=== PATIENT | female | born 1985 | race Caucasian/White ===

== ENCOUNTER 2020-08-28 17:09 | Emergency (ER) | payer OTHER ==
[2020-08-28 17:46] LABS: BASOPHILS # (AUTO) 0.1 10^3/uL (0.0-0.1); BASOPHILS % (AUTO) 0.4 %; EOSINOPHILS # (AUTO) 0.1 10^3/uL (0.0-0.7); EOSINOPHILS % (AUTO) 0.3 %; HCT - HEMATOCRIT 42.3 % (37.0-47.0); HGB - HEMOGLOBIN 14.3 g/dL (12.0-16.0); LYMPHOCYTES # (AUTO) 1.9 10^3/uL (1.5-3.5); LYMPHOCYTES % (AUTO) 9.5 %; MEAN CORPUSCULAR HEMOGLOBIN 31.2 pg (27.0-31.0); MEAN CORPUSCULAR HGB CONC 33.8 g/dL (32.0-36.0); MEAN CORPUSCULAR VOLUME 92.2 fL (81.0-99.0); MEAN PLATELET VOLUME 9.8 fL (7.9-10.8); MONOCYTES # (AUTO) 0.7 10^3/uL (0.0-1.0); MONOCYTES % (AUTO) 3.3 %; NEUTROPHILS # (AUTO) 17.1 10^3/uL (1.5-6.6); NEUTROPHILS % (AUTO) 86.1 %; PLT - PLATELET COUNT 370 10^3/uL (130-450); RED BLOOD COUNT 4.59 10^6/uL (4.20-5.40); RED CELL DISTRIBUTION WIDTH 12.1 % (12.0-15.0); WHITE BLOOD COUNT 19.9 x10^3/uL (4.8-10.8)
[2020-08-28 17:53] LABS: BILIRUBIN,URINE NEGATIVE (NEGATIVE); GLUCOSE, URINE (UA) NEGATIVE (NEGATIVE); KETONES,URINE (UA) NEGATIVE (NEGATIVE); LEUKOCYTE ESTERASE, URINE NEGATIVE (NEGATIVE); NITRITE,URINE NEGATIVE (NEGATIVE); OCCULT BLOOD,URINE NEGATIVE (NEGATIVE); PROTEIN,URINE NEGATIVE (NEGATIVE); UROBILINOGEN,URINE 0.2 (NORMAL) E.U./dL (NORMAL)
[2020-08-28 18:01] LABS: ALBUMIN 4.2 g/dL (3.2-5.5); ALBUMIN/GLOBULIN RATIO 1.2 (1.0-2.2); BILIRUBIN,TOTAL 0.7 mg/dL (0.2-1.0); CALCIUM 8.8 mg/dL (8.5-10.3); CLARITY,URINE CLEAR (CLEAR); CREATININE 0.7 mg/dL (0.4-1.0); HCG UR QUAL NEGATIVE; POTASSIUM 3.6 mmol/L (3.5-5.0); TOTAL PROTEIN 7.8 g/dL (6.7-8.2)
[2020-08-28] MEDS ORDERED: KETOROLAC 30 MG/ML VIAL IVP STA (18:02)
[2020-08-28] MEDS ORDERED: IOVERSOL 320 100 ML VIAL IVP ONE ×2 (18:09→19:28)
--- NOTE | 2020-08-28 18:48 | CT Report ---
PROCEDURE: Abdomen/Pelvis W INDICATIONS: lower abd pain, vomiting CONTRAST: IV CONTRAST: Optiray 320 ml: 100 PO CONTRAST: *NO PO CONTRAST TECHNIQUE: After the administration of intravenous contrast, 5 mm thick sections acquired from the diaphragms to the symphysis. 5 mm thick coronal and sagittal reformats were acquired. For radiation dose reducti on, the following was used: automated exposure control, adjustment of mA and/or kV according to nyasia ent size. COMPARISON: None. FINDINGS: Image quality: Excellent. ABDOMEN: Lung bases: Lung bases are clear. Heart size is normal. Solid organs: Liver and spleen are normal in size and enhancement. Gallbladder is unremarkable. Bi liary system is non dilated. Pancreas enhances normally. No adrenal nodules. Kidneys demonstrate n ormal size and enhancement, without hydronephrosis. Peritoneum and bowel: Bowel loops demonstrate normal wall thickness and caliber. No free fluid or a ir. Nodes and vessels: No retroperitoneal or mesenteric adenopathy by size criteria. Aorta and inferior vena cava are normal in size. Miscellaneous: No ventral hernias. PELVIS: Genitourinary: Bladder wall thickness is normal. Miscellaneous: No inguinal hernias or adenopathy. Bones: No suspicious bony lesions. No vertebral body compression fractures. IMPRESSION: No evidence of acute abdominal process. Reviewed by: Chetan Koehler MD on 08/28/2020 6:47 PM PDT Approved by: Chetan Koehler MD on 08/28/2020 6:47 PM PDT Station ID: [id number]
--- NOTE | 2020-08-28 18:58 | ED Physician Documentation ---
PD HPI ABD PAIN - Stated complaint Stated Complaint: ABD/BACK PX - Chief complaint Chief Complaint: Abd Pain - History obtained from History obtained from: Patient - History of Present Illness Timing - onset: How many days ago (2) Timing - duration: Days (2) Timing - details: Abrupt onset Pain level max: 8 Pain level now: 8 Quality: Aching, Pain Associated symptoms: Nausea, Vomiting. No: Fever, Hematemesis, Diarrhea, Constipation, Vaginal bleeding, Vaginal dc Recently seen: Not recently seen - Additional information Additional information: Patient is a 34-year-old female who presents to the emergency department with mid abdominal pain and left flank pain. Also some lower abdominal pain. Ongoing for the past 2 days. History of ureteral stones. She states that this feels similar. Nothing seems to make it better or worse. No fevers. Has had nausea and vomiting. No vaginal bleeding or discharge. Review of Systems Ten Systems: 10 systems reviewed and negative Constitutional: denies: Fever, Chills Nose: denies: Rhinorrhea / runny nose, Congestion Respiratory: denies: Cough GI: reports: Nausea, Vomiting. denies: Diarrhea : denies: Dysuria, Frequency, Hesitancy Skin: denies: Rash Musculoskeletal: denies: Neck pain, Back pain Neurologic: denies: Headache PD PAST MEDICAL HISTORY - Past Medical History Past Medical History: Yes : Kidney stones - Past Surgical History Past Surgical History: No - Present Medications Home Medications: Ambulatory Orders Medication Instructions Recorded Confirmed estradioL [Estrace] 1 mg PO DAILY 08/28/20 08/28/20 - Allergies Allergies/Adverse Reactions: Allergies Allergy/AdvReac Type Severity Reaction Status Date / Time acetaminophen [From Percocet] AdvReac Emesis Verified 08/28/20 17:15 oxycodone [From Percocet] AdvReac Emesis Verified 08/28/20 17:15 - Social History Does the pt smoke?: No Smoking Status: Never smoker Does the pt drink ETOH?: Yes Does the pt have substance abuse?: No - Immunizations Immunizations are current?: Yes PD ED PE NORMAL - Vitals Vital signs reviewed: Yes - General General: Alert and oriented X 3, No acute distress - HEENT HEENT: Moist mucous membranes - Neck Neck: Supple, no meningeal sign - Abdomen Abdomen: Soft, Non distended, Other (mild TTP lower abdomen. no peritoneal signs) - Female Female : Pt declined - Back Back: No CVA TTP, No spinal TTP - Derm Derm: Warm and dry - Extremities Extremities: No edema, No calf tenderness / cord - Neuro Neuro: Alert and oriented X 3 Results - Vitals Vitals: Vital Signs - 24 hr 08/28/20 08/28/20 08/28/20 17:13 19:52 21:55 Temperature 36.4 C L 36.8 C 37.2 C Heart Rate 82 76 74 Respiratory 16 16 18 Rate Blood Pressure 136/83 H 117/71 111/69 O2 Saturation 100 96 99 Oxygen O2 Source Room air - Labs Labs: Laboratory Tests 08/28/20 08/28/20 08/28/20 17:39 17:39 17:39 WBC 19.9 H RBC 4.59 Hgb 14.3 Hct 42.3 MCV 92.2 MCH 31.2 H MCHC 33.8 RDW 12.1 Plt Count 370 MPV 9.8 Neut # (Auto) 17.1 H Lymph # (Auto) 1.9 [place] # (Auto) 0.7 Eos # (Auto) 0.1 Baso # (Auto) 0.1 Absolute Nucleated RBC 0.00 Nucleated RBC % 0.0 Sodium 131 L Potassium 3.6 Chloride 100 L Carbon Dioxide 23 Anion Gap 8.0 BUN 10 Creatinine 0.7 Estimated GFR (MDRD) 96 Glucose 103 H Calcium 8.8 Total Bilirubin 0.7 AST 22 ALT 20 Alkaline Phosphatase 59 Total Protein 7.8 Albumin 4.2 Globulin 3.6 Albumin/Globulin Ratio 1.2 Lipase 30 Urine Color YELLOW Urine Clarity CLEAR Urine pH 7.0 Ur Specific [place] 1.020 Urine Protein NEGATIVE Urine Glucose (UA) NEGATIVE Urine Ketones NEGATIVE Urine Occult Blood NEGATIVE Urine Nitrite NEGATIVE Urine Bilirubin NEGATIVE Urine Urobilinogen 0.2 (NORMAL) Ur Leukocyte Esterase NEGATIVE Ur Microscopic Review NOT INDICATED Urine Culture Comments NOT INDICATED Urine HCG, Qual NEGATIVE - Rads (name of study) CT abd/pelvis Radiology: Prelim report reviewed, EMP read contemporaneously, See rad report duplex US RLE Radiology: Prelim report reviewed, EMP read contemporaneously, See rad report PD MEDICAL DECISION MAKING - ED course Complexity details: reviewed results, re-evaluated patient, considered differential, d/w patient ED course: No acute findings on CT of the abdomen pelvis or pelvic ultrasound. Unclear etiology of her pain. No significant lab abnormalities other than a significant leukocytosis. Possible stress reaction? No fevers. Pain resolved in the emergency department. Declines any pain medication other than Toradol here. Declines pain medication for home. Abdomen, soft, nontender nondistended on serial exam. Patient denies any vaginal bleeding or discharge. Declines a pelvic exam. Patient will follow up with her doctor if she fails to improve or worsens. Patient counseled regarding signs and symptoms for which I believe and urgent re-evaluation would be necessary. Patient with good understanding of and agreement to plan and is comfortable going home at this time This document was made in part using voice recognition software. While efforts are made to proofread this document, sound alike and grammatical errors may occur. Departure - Departure Disposition: 01 Home, Self Care Clinical Impression: Pelvic pain Condition: Good Instructions: ED Pelvic Pain [facility] Follow-Up: your,doctor in 3 days for recheck [Other] Comments: The cause of your symptoms is unclear today. Your testing does not show any acute abnormalities. Please follow-up with your doctor for further care. Discharge Date/Time: 08/28/20 21:57
[2020-08-28 21:56] VITALS: BP 111/69
--- NOTE | 2020-09-08 12:40 | Ultrasound Report ---
PROCEDURE: Pelvic w/Transvag+Doppler Comp INDICATIONS: pelvic pain, B, h/o PCOS TECHNIQUE: Real-time scanning was performed of the pelvic organs, with image documentation. Additional endovagi nal scanning was necessary due to incomplete visualization of the adnexal and endometrial structures by transabdominal scanning. COMPARISON: Correlation is made with the accompanying abdomen and pelvis CT, 08/28/2020. FINDINGS: No pathologic free abdominal or pelvic fluid. Uterus: Uterus is normal in size at 8.9 x 4 x 5 cm. The endometrium measures 9 mm in combined thick ness. Within the region of the cervix, there are nonvascular hyperechoic foci seen that measure up to 9 mm, when measured together. Ovaries: The right ovary measures 3.3 x 1.8 x 2.6 cm and the left ovary measures 2.9 x 1.5 x 2.6 cm. The right ovary demonstrates an exophytic 1 cm cyst, which is considered to be within physiologic li mits. No significant ovarian abnormalities are seen. There are more than 12 follicles seen on each side. No adnexal masses are seen. IMPRESSION: Nonspecific hyperechoic foci can be seen within the region of the cervix, which are likely related to a hematoma. More than 12 follicles can be seen involving each ovary, which is consistent with the given clinical history of polycystic ovarian syndrome. Note: No significant discrepancy from the preliminary report. Reviewed by: Jam Vieyra MD on 08/29/2020 9:08 AM GIOVANY Approved by: Jam Vieyra MD on 08/29/2020 9:08 AM GIOVANY Station ID: [id number]
== END 2020-08-28 21:57 | disposition home or self-care (01) ==
LOC: ED 17:09
DX: R10.2 Pelvic and perineal pain (principal)
CPT/HCPCS: 36415; 74177; 76830; 76856; 80053; 81003; 81025; 83690; 85025; 93975; 96374; 99284; Q9967; 81001; 87086

== ENCOUNTER 2020-08-29 09:25 | Day surgery (SDC) | payer OTHER ==
--- NOTE | 2020-08-29 09:50 | ED Physician Documentation ---
History of Present Illness - Stated complaint Stated Complaint: ABD PX/FEVER - Chief complaint Chief Complaint: Abd Pain - History obtained from History obtained from: Patient - Additonal information Additional information: 34-year-old woman, just seen here yesterday for abdominal pain, presents again with periumbilical abdominal pain that has now radiated to her right lower quadrant, severe, constant, aching, worse with rebound, associated with fever to 101 this morning and nausea and vomiting nonbloody nonbilious. Patient denies urinary symptoms, vaginal discharge, back pain, diarrhea. Review of Systems Ten Systems: 10 systems reviewed and negative Constitutional: reports: Fever, Myalgias Cardiac: denies: Chest pain / pressure Respiratory: denies: Dyspnea, Cough GI: reports: Abdominal Pain, Nausea, Vomiting. denies: Constipation, Diarrhea : denies: Dysuria, Vaginal bleeding Musculoskeletal: denies: Back pain PD PAST MEDICAL HISTORY - Past Medical History : Kidney stones - Past Surgical History Past Surgical History: No - Present Medications Home Medications: Ambulatory Orders Medication Instructions Recorded Confirmed No Known Home Medications 08/29/20 08/29/20 - Allergies Allergies/Adverse Reactions: Allergies Allergy/AdvReac Type Severity Reaction Status Date / Time acetaminophen [From Percocet] AdvReac Emesis Verified 08/29/20 09:31 oxycodone [From Percocet] AdvReac Emesis Verified 08/29/20 09:31 - Social History Does the pt smoke?: No Smoking Status: Never smoker Does the pt drink ETOH?: Yes Does the pt have substance abuse?: No - Immunizations Immunizations are current?: Yes PD ED PE NORMAL - Vitals Vital signs reviewed: Yes - General General: Alert and oriented X 3, Other (tearful appearing, moderate abdominal distress) - HEENT HEENT: Atraumatic, PERRL, EOMI - Neck Neck: Supple, no meningeal sign - Cardiac Cardiac: Other (tachycardic rate, reg rhythm) - Respiratory Respiratory: No respiratory distress, Clear bilaterally - Abdomen Abdomen: Other (+rebound ttp all four quadrants. ttp RLQ and periumbilical region) - Derm Derm: Normal color, Warm and dry - Extremities Extremities: No deformity - Neuro Neuro: Alert and oriented X 3 - Psych Psych: Normal mood, Normal affect Results - Vitals Vitals: Vital Signs - 24 hr 08/29/20 08/29/20 09:32 10:31 Temperature 37.5 C Heart Rate 106 H 88 Respiratory 18 16 Rate Blood Pressure 126/85 H 111/70 O2 Saturation 97 100 Oxygen O2 Source Room air - Labs Labs: Laboratory Tests 08/29/20 08/29/20 08/29/20 09:50 09:50 10:15 WBC 21.7 H RBC 4.68 Hgb 14.4 Hct 43.5 MCV 92.9 MCH 30.8 MCHC 33.1 RDW 12.3 Plt Count 356 MPV 10.1 Neut # (Auto) 19.7 H Lymph # (Auto) 0.7 L [place] # (Auto) 1.1 H Eos # (Auto) 0.0 Baso # (Auto) 0.1 Absolute Nucleated RBC 0.00 Nucleated RBC % 0.0 Manual Slide Review Indicated RBC Morph Micro Appear 1+ ANISOCYTOSIS PT INR APTT Sodium 134 L Potassium 3.6 Chloride 98 L Carbon Dioxide 21 Anion Gap 15.0 H BUN 9 Creatinine 0.8 Estimated GFR (MDRD) 82 L Glucose 132 H Lactic Acid 2.3 H Calcium 9.4 Total Bilirubin 0.9 AST 20 ALT 21 Alkaline Phosphatase 67 Total Protein 8.3 H Albumin 4.5 Globulin 3.8 Albumin/Globulin Ratio 1.2 Lipase 25 Blood Type Antibody Screen 08/29/20 08/29/20 10:15 10:15 WBC RBC Hgb Hct MCV MCH MCHC RDW Plt Count MPV Neut # (Auto) Lymph # (Auto) [place] # (Auto) Eos # (Auto) Baso # (Auto) Absolute Nucleated RBC Nucleated RBC % Manual Slide Review RBC Morph Micro Appear PT 13.1 H INR 1.2 APTT 27.1 Sodium Potassium Chloride Carbon Dioxide Anion Gap BUN Creatinine Estimated GFR (MDRD) Glucose Lactic Acid Calcium Total Bilirubin AST ALT Alkaline Phosphatase Total Protein Albumin Globulin Albumin/Globulin Ratio Lipase Blood Type A POSITIVE Antibody Screen NEGATIVE PD MEDICAL DECISION MAKING - ED course ED course: 34-year-old woman presents with acute abdomen, sepsis 2/2 surgical etiology suspected. antibiotics, 30cc/kg bolus ordered. Discussed with Dr. Vyas who recommends CT to evaluate for appendicitis vs TOA. appy on ct. d/w dr. vyas who will prep OR. Departure - Departure Disposition: [facility] DC/Xfer Clinical Impression: Sepsis, Appendicitis Condition: Stable
[2020-08-29] MEDS ORDERED: MORPHINE 2 MG/ML CARPUJECT IVP STA (09:57)
[2020-08-29] MEDS ORDERED: AMPICILLIN/SULBACTAM 3 GM in SODIUM CHLORIDE 0.9% MINIBAG 100 ML IV STA (09:57)
[2020-08-29] MEDS ORDERED: ONDANSETRON 4 MG/2 ML VIAL IVP STA (09:57)
[2020-08-29] MEDS ORDERED: SODIUM CHLORIDE 0.9% 2,500 ML IV STA (09:58)
[2020-08-29] MEDS ORDERED: IOVERSOL 320 100 ML VIAL IVP ONE ×2 (10:01→10:52)
[2020-08-29 10:22] LABS: BASOPHILS # (AUTO) 0.1 10^3/uL (0.0-0.1); BASOPHILS % (AUTO) 0.2 %; HCT - HEMATOCRIT 43.5 % (37.0-47.0); HGB - HEMOGLOBIN 14.4 g/dL (12.0-16.0); LYMPHOCYTES # (AUTO) 0.7 10^3/uL (1.5-3.5); LYMPHOCYTES % (AUTO) 3.4 %; MEAN CORPUSCULAR HEMOGLOBIN 30.8 pg (27.0-31.0); MEAN CORPUSCULAR HGB CONC 33.1 g/dL (32.0-36.0); MEAN CORPUSCULAR VOLUME 92.9 fL (81.0-99.0); MEAN PLATELET VOLUME 10.1 fL (7.9-10.8); MONOCYTES # (AUTO) 1.1 10^3/uL (0.0-1.0); NEUTROPHILS # (AUTO) 19.7 10^3/uL (1.5-6.6); NEUTROPHILS % (AUTO) 90.8 %; PLT - PLATELET COUNT 356 10^3/uL (130-450); RED BLOOD COUNT 4.68 10^6/uL (4.20-5.40); RED CELL DISTRIBUTION WIDTH 12.3 % (12.0-15.0); WHITE BLOOD COUNT 21.7 x10^3/uL (4.8-10.8)
[2020-08-29 10:24] LABS: SLIDE REVIEW? Indicated
[2020-08-29 10:32] LABS: ALBUMIN 4.5 g/dL (3.2-5.5); ALBUMIN/GLOBULIN RATIO 1.2 (1.0-2.2); BILIRUBIN,TOTAL 0.9 mg/dL (0.2-1.0); CALCIUM 9.4 mg/dL (8.5-10.3); CREATININE 0.8 mg/dL (0.4-1.0); POTASSIUM 3.6 mmol/L (3.5-5.0); TOTAL PROTEIN 8.3 g/dL (6.7-8.2)
[2020-08-29 10:44] LABS: RBC MORPHOLOGY (MULTIPLE) 1+ ANISOCYTOSIS (NORMAL)
[2020-08-29 11:04] LABS: INR 1.2 (0.8-1.2); PT - PROTHROMBIN TIME 13.1 secs (9.9-12.6)
[2020-08-29 11:11] LABS: PARTIAL THROMBOPLASTIN TIME 27.1 secs (24.9-33.3)
--- NOTE | 2020-08-29 11:22 | CT Report ---
PROCEDURE: Abdomen/Pelvis W INDICATIONS: Abdominal pain, acute, nonlocalized CONTRAST: IV CONTRAST: Optiray 320 ml: 100 PO CONTRAST: *NO PO CONTRAST TECHNIQUE: After the administration of nonionic IV contrast, 5 mm thick sections acquired from the diaphragms to the symphysis. 5 mm thick coronal and sagittal reformats were acquired. For radiation dose reducti on, the following was used: automated exposure control, adjustment of mA and/or kV according to nyasia ent size. COMPARISON: 08/28/2020. Correlation is also made with pelvic ultrasound, 08/28/2020. FINDINGS: Image quality: Excellent. ABDOMEN: Lung bases: Lung bases are clear. Heart size is normal. A small hiatal hernia is incidentally note d. Solid organs: Liver and spleen are normal in size and enhancement. Gallbladder demonstrates mild de creased excretion of contrast. Biliary system is non dilated. Pancreas enhances normally. No adren al nodules. Kidneys demonstrate normal size and enhancement, without hydronephrosis. Peritoneum and bowel: The appendix is abnormal, with a hyperenhancing wall and measuring up to 11 mm . Mild surrounding inflammatory changes are seen. No free air or significant free fluid can be seen. Bowel loops demonstrate normal wall thickness and caliber. No free fluid or air. Nodes and vessels: No retroperitoneal or mesenteric adenopathy by size criteria. Aorta and inferior vena cava are normal in size. Miscellaneous: No ventral hernias. PELVIS: Genitourinary: Bladder wall thickness is normal. The uterus demonstrates an unremarkable appearance for age. No adnexal masses are seen. Miscellaneous: No inguinal hernias or adenopathy. Bones: No suspicious bony lesions. No vertebral body compression fractures. IMPRESSION: Acute appendicitis. The findings have progressed compared to the prior examination. No findings of perforation or abscess can be seen. Incidental note is made of: Small hiatal hernia Note: Case discussed by telephone with Dr. Bhagat at 10:20 AM [place] time on 08/29/2020. Reviewed by: Jam Vieyra MD on 08/29/2020 10:21 AM [place] Approved by: Jam Vieyra MD on 08/29/2020 10:21 AM AKJOEL Station ID: [id number]
[2020-08-29 11:44] LABS: B. PARAPERTUSSIS- RESP PCR PAN NOT DETECTED; B. PERTUSSIS- RESP PCR PANEL NOT DETECTED; C. PNEUMONIAE- RESP PCR PANEL NOT DETECTED; CORONAVIRUS 229E-RESP PCR NOT DETECTED; CORONAVIRUS HKU1-RESP PCR NOT DETECTED; CORONAVIRUS NL63-RESP PCR NOT DETECTED; CORONAVIRUS OC43-RESP PCR NOT DETECTED; HUMAN METAPNEUMOVIRUS NOT DETECTED; INFLUENZA A- RESP PCR PANEL NOT DETECTED; INFLUENZA B - RESP PCR PANEL NOT DETECTED; M. PNEUMONIAE- RESP PCR PANEL NOT DETECTED; PARAINFLUENZA VIRUS 1 NOT DETECTED; PARAINFLUENZA VIRUS 2 NOT DETECTED; PARAINFLUENZA VIRUS 3 NOT DETECTED; PARAINFLUENZA VIRUS 4 NOT DETECTED; RHINOVIRUS/ENTEROVIRUS NOT DETECTED; RSV- RESP PCR PANEL NOT DETECTED; SARS-CoV-2 -RESP PCR PANEL NOT DETECTED
--- NOTE | 2020-08-29 12:42 | HISTORY & PHYSICAL EXAMINATION ---
HPI - Admitted From Admitted from: ED - History Obtained From History obtained from: Patient Exam limitations: No limitations - History of Present Illness Pain/Problem Location Description: Fever, nausea and vomiting Severity at the worst: reports: Severe Pain Quality: reports: Aching, Throbbing Context-Pain started w/: reports: Rest Timing: reports: Constant Duration: reports: Days: ( and 04/11) Improved with: reports: Nothing Worsened by: reports: Exertion, Inspiration, Movement, Palpation Associated symptoms: reports: Nausea, Vomiting, General Weakness HPI Comment/Other: 34-year-old woman, just seen here yesterday for abdominal pain, presents again with periumbilical abdominal pain that has now radiated to her right lower quadrant, severe, constant, aching, worse with rebound, associated with fever to 101 this morning and nausea and vomiting nonbloody nonbilious. Patient denies urinary symptoms, vaginal discharge, back pain, diarrhea. She had an extensive workup with CT and pelvic ultrasound that revealed no intraabdominal process yesterday. Today, the CT is consistent with acute appendicitis. PMH/PSH - Past Medical History : positive: Kidney stones MRSA Hx?: No - Past Surgical History HEENT: positive: Tonsil/Adenoidectomy Social & Family Hx - Living Situation Living Arrangement: At home Living Situation: With family - Social History Does the pt smoke?: No Smoking Status: Never smoker Does the pt drink ETOH?: Yes Does the pt have substance abuse?: No - POLST Patient has POLST: No Meds/Allgy - Home Medications Home Medications: Ambulatory Orders Medication Instructions Recorded Confirmed No Known Home Medications 08/29/20 08/29/20 - Allergies Allergies/Adverse Reactions: Allergies Allergy/AdvReac Type Severity Reaction Status Date / Time oxycodone [From Percocet] AdvReac Emesis Verified 08/29/20 09:31 Review of Systems - Constitutional Constitutional: reports: Fatigue, Malaise, Poor appetite - Eyes Eyes: denies: Pain, Blurred vision - Ears, Nose & Throat Ears, Nose & Throat: denies: Tinnitus, Vertigo, Sore throat, Hoarseness - Cardiovascular Cariovascular: denies: Irregular heart rate, Palpitations - Respiratory Respiratory: denies: Cough, Sputum production - Gastrointestinal Gastrointestinal: reports: Abdominal pain, Nausea, Vomiting, Bile emesis - Genitourinary Genitourinary: denies: Dysuria, Frequency - All Other Systems All Other Systems: reports: Reviewed and negative Exam - Vital Signs Reviewed Vital Signs: Yes Vital Signs: Vital Signs x48h Temp Pulse Resp BP Pulse Ox 08/29/20 11:59 84 16 107/73 100 08/29/20 10:31 88 16 111/70 100 08/29/20 09:32 37.5 C 106 H 18 126/85 H 97 - Physical Exam General Appearance: positive: Alert, Mild distress Eyes Bilateral: positive: Normal inspection, PERRL, EOMI ENT: positive: ENT inspection nml, Pharynx nml, No signs of dehydration Neck: positive: Nml inspection, Thyroid nml, No JVD, Trachea midline. negative: Thyromegaly Respiratory: positive: Chest non-tender, No respiratory distress, Breath sounds nml Cardiovascular: positive: Regular rate & rhythm, No murmur Peripheral Pulses: positive: 2+ Abdomen: positive: Tenderness, Guarding, Rebound, Abnml bowel sounds (hypoactive) Back: positive: CVA tenderness (R). negative: CVA tenderness (L) Skin: positive: Color nml, No rash Extremities: positive: Non-tender Neurologic/Psychiatric: positive: Oriented x3 Results - Lab Results Fish Bones: 08/29/20 09:50 08/29/20 09:50 Other Lab Results: Lab Results x24hrs 08/29/20 08/29/20 08/29/20 Range/Units 10:25 10:15 10:15 WBC (4.8-10.8) x10^3/uL RBC (4.20-5.40) 10^6/uL Hgb (12.0-16.0) g/dL Hct (37.0-47.0) % MCV (81.0-99.0) fL MCH (27.0-31.0) pg MCHC (32.0-36.0) g/dL RDW (12.0-15.0) % Plt Count (130-450) 10^3/uL MPV (7.9-10.8) fL Neut # (Auto) (1.5-6.6) 10^3/uL Lymph # (Auto) (1.5-3.5) 10^3/uL [place] # (Auto) (0.0-1.0) 10^3/uL Eos # (Auto) (0.0-0.7) 10^3/uL Baso # (Auto) (0.0-0.1) 10^3/uL Absolute Nucleated RBC x10^3/uL Nucleated RBC % /100WBC Manual Slide Review RBC Morph Micro Appear (NORMAL) PT 13.1 H (9.9-12.6) secs INR 1.2 (0.8-1.2) APTT 27.1 (24.9-33.3) secs Sodium (135-145) mmol/L Potassium (3.5-5.0) mmol/L Chloride (101-111) mmol/L Carbon Dioxide (21-32) mmol/L Anion Gap (6-13) BUN (6-20) mg/dL Creatinine (0.4-1.0) mg/dL Estimated GFR (MDRD) (>89) Glucose (70-100) mg/dL Lactic Acid (0.5-2.2) mmol/L Calcium (8.5-10.3) mg/dL Total Bilirubin (0.2-1.0) mg/dL AST (10-42) IU/L ALT (10-60) IU/L Alkaline Phosphatase (42-121) IU/L Total Protein (6.7-8.2) g/dL Albumin (3.2-5.5) g/dL Globulin (2.1-4.2) g/dL Albumin/Globulin Ratio (1.0-2.2) Lipase (22-51) U/L Nasal Adenovirus (PCR) NOT DETECTED Nasal B. parapertussis DNA (PCR) NOT DETECTED Nasal Coronavir 229E PCR NOT DETECTED Nasal Coronavir HKU1 PCR NOT DETECTED Nasal Coronavir NL63 PCR NOT DETECTED Nasal Coronavir OC43 PCR NOT DETECTED Nasal Enterovir/Rhinovir PCR NOT DETECTED Nasal Influenza B PCR NOT DETECTED Nasal Influenza A PCR NOT DETECTED Nasal Parainfluen 1 PCR NOT DETECTED Nasal Parainfluen 2 PCR NOT DETECTED Nasal Parainfluen 3 PCR NOT DETECTED Nasal Parainfluen 4 PCR NOT DETECTED Nasal RSV (PCR) NOT DETECTED Nasal B.pertussis DNA PCR NOT DETECTED Nasal C.pneumoniae (PCR) NOT DETECTED [place] Human Metapneumo PCR NOT DETECTED Nasal M.pneumoniae (PCR) NOT DETECTED Nasal SARS-CoV-2 (PCR) NOT DETECTED Blood Type A POSITIVE Antibody Screen NEGATIVE 08/29/20 08/29/20 08/29/20 Range/Units 10:15 09:50 09:50 WBC 21.7 H (4.8-10.8) x10^3/uL RBC 4.68 (4.20-5.40) 10^6/uL Hgb 14.4 (12.0-16.0) g/dL Hct 43.5 (37.0-47.0) % MCV 92.9 (81.0-99.0) fL MCH 30.8 (27.0-31.0) pg MCHC 33.1 (32.0-36.0) g/dL RDW 12.3 (12.0-15.0) % Plt Count 356 (130-450) 10^3/uL MPV 10.1 (7.9-10.8) fL Neut # (Auto) 19.7 H (1.5-6.6) 10^3/uL Lymph # (Auto) 0.7 L (1.5-3.5) 10^3/uL [place] # (Auto) 1.1 H (0.0-1.0) 10^3/uL Eos # (Auto) 0.0 (0.0-0.7) 10^3/uL Baso # (Auto) 0.1 (0.0-0.1) 10^3/uL Absolute Nucleated RBC 0.00 x10^3/uL Nucleated RBC % 0.0 /100WBC Manual Slide Review Indicated RBC Morph Micro Appear 1+ ANISOCYTOSIS (NORMAL) PT (9.9-12.6) secs INR (0.8-1.2) APTT (24.9-33.3) secs Sodium 134 L (135-145) mmol/L Potassium 3.6 (3.5-5.0) mmol/L Chloride 98 L (101-111) mmol/L Carbon Dioxide 21 (21-32) mmol/L Anion Gap 15.0 H (6-13) BUN 9 (6-20) mg/dL Creatinine 0.8 (0.4-1.0) mg/dL Estimated GFR (MDRD) 82 L (>89) Glucose 132 H (70-100) mg/dL Lactic Acid 2.3 H (0.5-2.2) mmol/L Calcium 9.4 (8.5-10.3) mg/dL Total Bilirubin 0.9 (0.2-1.0) mg/dL AST 20 (10-42) IU/L ALT 21 (10-60) IU/L Alkaline Phosphatase 67 (42-121) IU/L Total Protein 8.3 H (6.7-8.2) g/dL Albumin 4.5 (3.2-5.5) g/dL Globulin 3.8 (2.1-4.2) g/dL Albumin/Globulin Ratio 1.2 (1.0-2.2) Lipase 25 (22-51) U/L Nasal Adenovirus (PCR) Nasal B. parapertussis DNA (PCR) Nasal Coronavir 229E PCR Nasal Coronavir HKU1 PCR Nasal Coronavir NL63 PCR Nasal Coronavir OC43 PCR Nasal Enterovir/Rhinovir PCR Nasal Influenza B PCR Nasal Influenza A PCR Nasal Parainfluen 1 PCR Nasal Parainfluen 2 PCR Nasal Parainfluen 3 PCR Nasal Parainfluen 4 PCR Nasal RSV (PCR) Nasal B.pertussis DNA PCR Nasal C.pneumoniae (PCR) [place] Human Metapneumo PCR Nasal M.pneumoniae (PCR) Nasal SARS-CoV-2 (PCR) Blood Type Antibody Screen - Diagnostic Imaging Results Diagnostic Imaging Results: positive: Final report reviewed Diagnostic Imaging Results Comments: Consistent with acute appendicitis. Findings have progressed since the initial examination Impression/Plan - Problem List Problem List: Acute appendicitis in the setting of a very healthy 34-year-old lady with no other significant medical history. We have discussed the risks and benefits of laparoscopic appendectomy and the patient is expressed a desire to complete the procedure today. Both verbal and written consent were obtained.
[2020-08-29 12:44] LABS: BILIRUBIN,URINE NEGATIVE (NEGATIVE); GLUCOSE, URINE (UA) NEGATIVE (NEGATIVE); KETONES,URINE (UA) TRACE mg/dL (NEGATIVE); LEUKOCYTE ESTERASE, URINE NEGATIVE (NEGATIVE); NITRITE,URINE NEGATIVE (NEGATIVE); OCCULT BLOOD,URINE NEGATIVE (NEGATIVE); PROTEIN,URINE NEGATIVE (NEGATIVE); UROBILINOGEN,URINE 0.2 (NORMAL) E.U./dL (NORMAL)
[2020-08-29 12:46] LABS: CLARITY,URINE CLEAR (CLEAR)
[2020-08-29] MEDS ORDERED: MIDAZOLAM 2 MG/2 ML VIAL ONE (13:15)
[2020-08-29] MEDS ORDERED: ONDANSETRON 4 MG/2 ML VIAL ONE (13:18)
[2020-08-29] MEDS ORDERED: fentaNYL 100 MCG/2 ML VIAL ONE ×2 (13:18→14:25)
[2020-08-29] MEDS ORDERED: ROCURONIUM 50 MG/5 ML VIAL ONE (13:18)
[2020-08-29] MEDS ORDERED: KETOROLAC 30 MG/ML VIAL ONE (13:18)
[2020-08-29] MEDS ORDERED: DEXAMETHASONE 4 MG/ML VIAL ONE (13:18)
[2020-08-29] MEDS ORDERED: ATROPINE ABBOJECT 1 MG/10 ML SYRINGE IVP PRN (13:25)
[2020-08-29] MEDS ORDERED: METOCLOPRAMIDE 10 MG/2 ML VIAL IVP PRN (13:25)
[2020-08-29] MEDS ORDERED: MORPHINE 2 MG/ML CARPUJECT IVP PRN (13:25)
[2020-08-29] MEDS ORDERED: ePHEDrine 50 MG/ML VIAL IVP PRN (13:25)
[2020-08-29] MEDS ORDERED: fentaNYL 100 MCG/2 ML VIAL IVP PRN (13:25)
[2020-08-29] MEDS ORDERED: ONDANSETRON 4 MG/2 ML VIAL IVP PRN ×3 (13:25→14:47)
[2020-08-29] MEDS ORDERED: NALOXONE 0.4 MG/ML VIAL IVP PRN (13:25)
[2020-08-29] MEDS ORDERED: HYDROmorphone 0.5 MG/0.5 ML SYRINGE IVP PRN (13:25)
--- NOTE | 2020-08-29 13:25 | ANESTHESIA ---
Pre-Anesthesia VS, & Labs - Diagnosis acute appendicitis - Procedure lap appy Vital Signs: Temp Pulse Resp BP Pulse Ox 37.3 C 82 16 110/72 100 08/29/20 13:00 08/29/20 13:00 08/29/20 13:00 08/29/20 13:00 08/29/20 13:00 Height: 4 ft 10 in Weight (kg): 68.039 kg Body Mass Index: 31.3 BMI Classification: Obese - NPO >8 hours - Is Patient ?: No - Lab Results Current Lab Results: Laboratory Tests 08/29/20 10:15: PT 13.1 H, INR 1.2, APTT 27.1 08/29/20 10:15: Blood Type A POSITIVE, Antibody Screen NEGATIVE 08/29/20 10:15: Lactic Acid 2.3 H 08/29/20 09:50: Sodium 134 L, Potassium 3.6, Chloride 98 L, Carbon Dioxide 21, Anion Gap 15.0 H, BUN 9, Creatinine 0.8, Estimated GFR (MDRD) 82 L, Glucose 132 H, Calcium 9.4, Total Bilirubin 0.9, AST 20, ALT 21, Alkaline Phosphatase 67, Total Protein 8.3 H, Albumin 4.5, Globulin 3.8, Albumin/Globulin Ratio 1.2, Lipase 25 08/29/20 09:50: WBC 21.7 H, RBC 4.68, Hgb 14.4, Hct 43.5, MCV 92.9, MCH 30.8, MCHC 33.1, RDW 12.3, Plt Count 356, MPV 10.1, Neut # (Auto) 19.7 H, Lymph # (Auto) 0.7 L, [place] # (Auto) 1.1 H, Eos # (Auto) 0.0, Baso # (Auto) 0.1, Absolute Nucleated RBC 0.00, Nucleated RBC % 0.0, Manual Slide Review Indicated, RBC Morph Micro Appear 1+ ANISOCYTOSIS Fish Bones: 08/29/20 09:50 08/29/20 09:50 Home Medications and Allergies Home Medications: Ambulatory Orders No Known Home Medications 08/29/20 No Known Home Medications 08/29/20 Allergies/Adverse Reactions: Allergies Allergy/AdvReac Type Severity Reaction Status Date / Time oxycodone [From Percocet] AdvReac Emesis Verified 08/29/20 09:31 Anes History & Medical History - Anesthetic History Anesthesia Complications: reports: No previous complications Family history of Anesthesia Complications: Denies Family history of Malignant Hyperthermia: Denies - Medical History Cardiovascular: reports: None Pulmonary: reports: None Gastrointestinal: reports: None Urinary: reports: Kidney stones Neuro: reports: Migraines Musculoskeletal: reports: None Endocrine/Autoimmune: reports: None Blood Disorders: reports: None Skin: reports: None Smoking Status: Never smoker - Surgical History Eyes Ears Nose Throat (EENT): reports: Tonsil/Adenoidectomy Exam General: Alert, Oriented x3, Cooperative Dental: WNL Mouth Openin Fingerbreadth Neck Mobility: Normal Mallampati classification: II Thyromental Distance: 4-6 cm Respiratory: Lungs clear Cardiovascular: Regular rate Plan Anesthesia Type: General Consent for Procedure(s) Verified and Reviewed: Yes Code Status: Attempt Resuscitation ASA classification: 2-Mild systemic disease Is this case an emergency?: Yes
[2020-08-29] MEDS ORDERED: BUPIVACAINE 0.5% PF 30 ML VIAL ONE (13:32)
[2020-08-29] MEDS ORDERED: LIDOCAINE MPF 2%-EPI 1:200000 20 ML VIAL ONE (13:32)
[2020-08-29] MEDS ORDERED: LIDOCAINE MPF 2%-EPI 1:200000 20 ML VIAL SUBQ ONE ×2 (13:33→14:30)
[2020-08-29] MEDS ORDERED: BUPIVACAINE 0.5% PF 30 ML VIAL INFIL ONE ×2 (13:33→14:30)
[2020-08-29 13:34] LABS: HCG UR QUAL NEGATIVE
[2020-08-29] MEDS ORDERED: LACTATED RINGERS 1,000 ML IV SCH (14:00)
[2020-08-29] MEDS ORDERED: ACETAMINOPHEN 1,000 MG/100 ML 100 ML IV ONE (14:18)
[2020-08-29] MEDS ORDERED: SUGAMMADEX 200 MG/2 ML VIAL IVP ONE (14:29)
--- NOTE | 2020-08-29 14:41 | OPERATIVE REPORT ---
Operative Report - General Procedure Date: 08/29/20 Planned Procedure: Laparoscopic appendectomy Pre-Op Diagnosis: Acute appendicitis Procedure Performed: Laparoscopic appendectomy Post Op Diagnosis: Acute appendicitis without gross perforation - Procedure Note Primary Surgeon: Warren Anesthesia Provider: Miguelina Anesthesia Technique: General ET tube Pathology: Appendix to pathology in formalin Estimated Blood Loss (mL): 10 Findings: Acute suppurative appendicitis without gross perforation Complications: None apparent - Other Other Information/Narrative: After obtaining informed consent, the patient is brought to the operating room and placed in the supine position on the operating table. Following successful induction of general endotracheal anesthesia, appropriate padding of all bony prominences, and placement of appropriate monitors, the abdomen was prepped and draped in the standard surgical fashion. A timeout was held per scope protocol. All elements of the surgical safety checklist were followed before, during, and after the procedure. Following infiltration with local anesthetic to create a field block, an incision was created inferior to the umbilicus and carried down through the skin and subcutaneous tissue to reveal the fascia below. 2-0 Vicryl retention sutures were placed on either side of the midline and the abdomen was entered under direct vision using a 15 blade scalpel. A 10 mm blunt Rod balloon trocar was placed in the abdominal cavity and it was insufflated to 15 mmHg pressure. The patient was placed in Trendelenburg position with the left side rotated toward the floor. The camera was placed in the abdominal cavity and we immediately visualized the cecum in the right lower quadrant. It was rotated medially to reveal a somewhat dilated and turgid appendix. The appendix was grasped and elevated revealing its attachment to the cecum. A window was created in the mesoappendix at this location. A laparoscopic stapling device was used to ligate the appendix and liberated from its attachment to the cecum. An additional load of the device were used to divide its mesentery.The appendix was placed in an Endo Catch bag and removed via the umbilical port with a camera in the epigastric position. The camera was replaced in the operative site examined. It was irrigated with warm saline solution and aspirated free of all fluid and particulate matter. The table was flattened and the abdomen evaluated once again. The trochars were removed under direct vision and abdomen was desufflated. The umbilical incision was closed with interrupted Vicryl suture and Monocryl stitches were placed in the skin. All sponge, needles, and instrument counts were correct at the conclusion of the case. The patient was allowed to wake from anesthesia without difficulty and taken to the postanesthesia care unit in good condition.
[2020-08-29] MEDS ORDERED: IBUPROFEN 600 MG TABLET PO PRN ×2 (14:42→14:47)
[2020-08-29] MEDS ORDERED: ACETAMINOPHEN 325 MG TABLET PO PRN ×2 (14:42→14:47)
[2020-08-29] MEDS ORDERED: traMADol 50 MG TABLET PO PRN (14:43)
[2020-08-29] MEDS ORDERED: ePHEDrine 50 MG/ML VIAL IVP ONE (14:46)
[2020-08-29] MEDS ORDERED: oxyCODONE 5 MG TABLET PO PRN (14:47)
[2020-08-29] MEDS ORDERED: LACTATED RINGERS 1,000 ML IV ONE (14:54)
--- NOTE | 2020-08-29 16:34 | ANESTHESIA POST OP EVALUATION ---
Anesthesia Post Eval - Post Anesthesia Eval Vitals: Last Vital Signs Temp 37.1 C 08/29/20 16:20 Pulse 97 08/29/20 16:20 Resp 18 08/29/20 16:20 BP 95/55 L 08/29/20 16:20 Pulse Ox 96 08/29/20 16:20 CV Function Including HR & BP: Stable Pain Control: Satisfactory Nausea & Vomiting: Negative Mental Status: Baseline Respiratory Status: Airway Patent Hydration Status: Satisfactory Anesthesia Complications: None
[2020-08-29] MEDS ORDERED: SODIUM CHLORIDE 0.9% 1,000 ML IV ONE (16:56)
[2020-08-29 19:06] VITALS: BP 99/57
== END 2020-08-29 19:26 | disposition home or self-care (01) ==
LOC: ED 09:25 → SDS 12:00 → MS2 14:58 → SDS 19:26
PROVIDERS: ATTEND Surgery
PROC: 0DTJ4ZZ Resection of Appendix, Percutaneous Endoscopic Approach (ICD-10-PCS; principal; 2020-08-29 13:30)
DX: K35.80 Unspecified acute appendicitis (principal); E66.9 Obesity, unspecified; Z68.31 Body mass index [BMI] 31.0-31.9, adult; Z20.822 Contact with and (suspected) exposure to COVID-19; Z87.442 Personal history of urinary calculi
CPT/HCPCS: 0202U; 36415; 44970; 74177; 80053; 81003; 81025; 83605; 83690; 85025; 85610; 85730; 86850; 86900; 86901; 96365; 96366; 96375; 99285; A9270; J0131; J7120; Q9967; 81001; 87086